=== PATIENT | female | born 1960 | race Caucasian/White ===

== ENCOUNTER → 2019-10-12 | Outpatient (CLI) | payer OTHER ==
[~2019-10-12] MED LIST: ACETAMINOPHEN-1 EAC1 PO; ARMOUR THYROID90 M1; VICODIN 5-5001 EACH PO
[2019-10-12 08:22] LABS: CHOLESTEROL 187 mg/dL (<200); HDL CHOLESTEROL 51 mg/dL (>40); LDL CHOLESTEROL 122 mg/dL (<100); TC:HDL 3.7 Ratio (Not establshd); TRIGLYCERIDE 73 mg/dL (<150); VLDL 15 mg/dL (<40)
[2019-10-12 08:23] LABS: SERUM ASSESSMENT Clear
== END ==
LOC: M.LAB 07:26
PROVIDERS: ATTEND Family Medicine
DX: E03.9 Hypothyroidism, unspecified (principal); E55.9 Vitamin D deficiency, unspecified